=== PATIENT | female | born 1980 | race Caucasian/White ===

== ENCOUNTER 2016-11-07 21:31 | Emergency (ER) | payer MEDICAID ==
[~2016-11-07] VITALS: Ht 165.1 cm; Wt 59.0 kg
--- NOTE | 2016-11-07 22:10 | NUR ---
Pt is is uncooperative at times. Demanding to have x ray "right away." Pt c/o of splint placed invorrectly by "[facility]."
--- NOTE | 2016-11-07 22:33 | NUR ---
Patient discharged to home in stable conditon with secruity gajanetd escorting Pt out. Written and verbal after care instructions given. Patient verbalizes understanding of instructions. Walked out of ER with no distress noted
== END 2016-11-07 22:34 | disposition home or self-care (01) ==
LOC: ER 21:32
DX: S62.641A Nondisplaced fracture of proximal phalanx of left index finger, initial encounter for closed fracture (principal); F10.20 Alcohol dependence, uncomplicated; F17.200 Nicotine dependence, unspecified, uncomplicated; X58.XXXA Exposure to other specified factors, initial encounter; Y93.89 Activity, other specified; Y99.8 Other external cause status; Y92.89 Other specified places as the place of occurrence of the external cause
CPT/HCPCS: 73130; A4663